=== PATIENT | female | born 1975 ===

== ENCOUNTER 2018-01-24 10:24 | Emergency (ER) | payer SELFPAY ==
[2018-01-24] MEDS ORDERED: Lactated Ringers 1,000 ML IV SCH (10:45)
--- NOTE | 2018-01-24 10:51 | EDM.PDOC ---
ED HPI GENERAL MEDICAL PROBLEM - General Chief Complaint: General Stated Complaint: MED[facility] Time Seen by Provider: 01/24/18 10:30 Source of Information: Reports: Patient, EMS History Limitations: Reports: No Limitations - History of Present Illness INITIAL COMMENTS - FREE TEXT/NARRATIVE: 42-year-old presents from detox facility after an episode of LOC. 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 She reports that she is otherwise healthy. She describes an episode this morning where she got up out of a chair to get a drink of juice when she began to feel dizzy like she was about to pass out. She took a few steps and sat down to have her BP taken when she had lose of consciousness and fell to the floor. This all happened within a minute. Witnesses report no seizure-like activity, no tongue biting, no incontinence. LOC duration < 1 minute. The patient awoke on the floor and fell mildly confused but was oriented to situation. She does report a history of prior syncopal episode in high school. There is no clear trigger for this. She has no history of seizure disorder. She was treated yesterday with Valium, no doses today. She is on no other medications. She reports that her alcohol use was actually minimal prior to going to detox, and she is primarily using methamphetamine as a stress response to the of her brother last fall. She denies any chest pain. No palpitations. No lower extremity swelling, no history of DVT. Father had coronary artery disease, but no family history of sudden cardiac or unexplained . She reports approximately 25 pound weight loss over the last couple months attributed to her drug use. Feels at baseline now. - Related Data Allergies Allergy/AdvReac Type Severity Reaction Status Date / Time amoxicillin Allergy Airway Verified 01/24/18 10:27 Tightness clavulanic acid Allergy Anaphylactic Verified 01/24/18 10:27 [From Augmentin] Shock Home Meds: Home Meds NK [No Known Home Meds] 01/24/18 [History] Past Medical History [place] [place] History: Reports: Psychiatric History: Reports: Anxiety - Past Surgical History Female Surgical History: Reports: Tubal Ligation Social & Family History - Caffeine Use Caffeine Use: Reports: Coffee - Recreational Drug Use Recreational Drug Type: Reports: Methamphetamine ED ROS GENERAL - Review of Systems Review Of Systems: See Below Constitutional: Reports: Weight Loss. Denies: Fever, Chills HEENT: Reports: No Symptoms Respiratory: Denies: Shortness of Breath, Pleuritic Chest Pain, Cough Cardiovascular: Reports: Lightheadedness, Syncope. Denies: Chest Pain, Dyspnea on Exertion, Palpitations Endocrine: Reports: No Symptoms GI/Abdominal: Denies: Abdominal Pain, Black Stool, Bloody Stool, Vomiting : Reports: No Symptoms Musculoskeletal: Reports: No Symptoms Skin: Denies: Rash Neurological: Reports: Dizziness, Syncope. Denies: Confusion, Headache, Numbness, Paresthesia, Tingling, Trouble Speaking, Difficulty Walking, Weakness , Change in Speech Psychiatric: Reports: No Symptoms Hematologic/Lymphatic: Reports: No Symptoms Immunologic: Reports: No Symptoms ED EXAM, GENERAL - Physical Exam Exam: See Below Exam Limited By: No Limitations General Appearance: Alert, WD/WN Eye Exam: Bilateral Eye: EOMI, PERRL Ears: Normal External Exam Nose: Normal Inspection Throat/Mouth: Normal Inspection Head: Atraumatic, Normocephalic Neck: Normal Inspection, Non-Tender, Full Range of Motion Respiratory/Chest: No Respiratory Distress, Lungs Clear, Normal Breath Sounds Cardiovascular: Regular Rate, Rhythm, No Edema, No Murmur GI/Abdominal: Soft, Non-Tender (Female) Exam: Deferred Back Exam: Normal Inspection Extremities: Normal Inspection Neurological: Alert, Oriented, CN II-XII Intact, Normal Gait, Other (Conversant with clear speech, no upper extremity drift, normal coordination, strength, and sensation in the extremities) Psychiatric: Normal Affect, Normal Mood Skin Exam: Warm, Dry EKG INTERPRETATION Rhythm: NSR P-Wave: Present QRS: Normal ST-T: Normal QT: Normal Comparison: NA - No Prior EKG Course - Vital Signs Last Recorded V/S: Last Vital Signs Temp 36.1 C 01/24/18 10:30 Pulse 63 01/24/18 10:30 Resp 16 01/24/18 10:30 BP 116/59 L 01/24/18 10:30 Pulse Ox 100 01/24/18 10:30 - Orders/Labs/Meds Orders: Active Orders 24 hr Category Date Time Status EKG Documentation Completion [RC] ASDIRECTED Care 01/24/18 10:44 Active Lactated Ringers [Ringers, Lactated] 1,000 ml Med 01/24/18 10:45 Active IV ASDIRECTED EKG 12 Lead [EK] Routine Ther 01/24/18 10:44 Ordered Medication Orders Lactated Ringer's (Ringers, Lactated) 1,000 mls @ 999 mls/hr IV ASDIRECTED [facility] Last Admin: 01/24/18 10:46 Dose: 999 mls/hr Labs: Laboratory Tests 01/24/18 01/24/18 Range/Units 10:51 10:51 WBC 10.7 (4.5-11.0) K/uL RBC 4.30 (3.30-5.50) M/uL Hgb 12.9 (12.0-15.0) g/dL Hct 38.5 (36.0-48.0) % MCV 90 (80-98) fL MCH 30 (27-31) pg MCHC 34 (32-36) % Plt Count 375 (150-400) K/uL Sodium 141 (140-148) mmol/L Potassium 4.1 (3.6-5.2) mmol/L Chloride 105 (100-108) mmol/L Carbon Dioxide 25 (21-32) mmol/L Anion Gap 10.7 (5.0-14.0) mmol/L BUN 7 (7-18) mg/dL Creatinine 0.7 (0.6-1.0) mg/dL Est Cr Clr Drug Dosing 87.49 mL/min Estimated GFR (MDRD) > 60 (>60) Glucose 89 (74-106) mg/dL Calcium 8.5 (8.5-10.1) mg/dL Meds: Medications Generic Name Dose Route Start Last Admin Trade Name Mikieq PRN Reason Stop Dose Admin Lactated Ringer's 1,000 mls @ 999 mls/hr 01/24/18 10:45 01/24/18 10:46 Ringers, Lactated IV 999 mls/hr ASDIRECTED [facility] Administration - Re-Assessments/Exams Free Text/Narrative Re-Assessment/Exam: 42-year-old currently undergoing detox but otherwise healthy presents after syncopal episode, history consistent with this rather than seizure She feels at baseline now. Her vital signs are normal. Neuro exam is unremarkable EKG obtained and shows normal sinus rhythm with normal intervals and no evidence of ischemia Obtaining basic screening labs given recent weight loss and substance abuse, and administering fluid bolus No head strike or need for head CT History of standing from chair is consistent with a vasovagal episode, and have low concern for malignant cause of syncope such as malignant arrhythmia or PE Anticipated discharge if workup is unremarkable, normal trial of ambulation, and stable vitals and rhythm during period of observation in the ED. 01/24/18 11:03 Free Text/Narrative Re-Assessment/Exam: Labs unremarkable Stable during period of observation Ambulatory with stable gait Feels at baseline Discharged back to detox facility 01/24/18 11:56 Departure - Departure Time of Disposition: 11:53 Disposition: DC/Tfer to Other 70 Clinical Impression: Syncope and collapse - Discharge Information *PRESCRIPTION DRUG MONITORING PROGRAM REVIEWED*: No *COPY OF PRESCRIPTION DRUG MONITORING REPORT IN PATIENT SANDIP: No Referrals: PCP,None [Primary Care Provider] - Forms: ED Department Discharge Additional Instructions: Your symptoms are consistent with a syncopal episode Your work up was re-assuring this was not due to an emergent condition It is important that you stay well hydrated Return to the ER for recurrent and persistent symptoms, chest discomfort, or other symptoms which are concerning to you. - My Orders Last 24 Hours: My Active Orders 01/24/18 10:44 EKG Documentation Completion [RC] ASDIRECTED EKG 12 Lead [EK] Routine 01/24/18 10:45 Lactated Ringers [Ringers, Lactated] 1,000 ml IV ASDIRECTED - Assessment/Plan Last 24 Hours: My Active Orders 01/24/18 10:44 EKG Documentation Completion [RC] ASDIRECTED EKG 12 Lead [EK] Routine 01/24/18 10:45 Lactated Ringers [Ringers, Lactated] 1,000 ml IV ASDIRECTED
== END 2018-01-24 12:36 | disposition other institution (70) ==
LOC: JP.ED 10:24
DX: R55 Syncope and collapse (principal)
CPT/HCPCS: 36415; 80048; 85027; 93005; 96360; 99283; 99285; J7120; 93010